=== PATIENT | male | born 1955 | race Two or more races ===

== ENCOUNTER 2024-12-26 10:44 | Emergency (ER) | payer MEDICAID, SELFPAY ==
[2024-12-26 10:45] VITALS: BMI 39.9
[2024-12-26 10:57] VITALS: BP 151/100; PULSE 94; RESP 18; TEMP 36.7; O2SAT 96
--- NOTE | 2024-12-26 11:05 | PD.EDMALE ---
ED Male Genitalurinary RME/HPI General Chief complaint: Urogenital-Male Stated complaint: PAINFUL URINATION X2DAYS Time Seen by Provider: 12/26/24 11:02 Source: patient Arrival date/time: 12/26/24 10:44 69-year-old male with a history of hyperlipidemia, hypertension presents to the emergency room with a chief complaint of dysuria x 2 days Mode of arrival: ambulatory Limitations: no limitations Related Data Home Medications ?Medication ?Instructions ?Recorded ?Confirmed isosorbide mononitrate 60 mg 60 mg PO QAM 09/23/21 09/25/21 tablet,extended release 24 hr losartan 100 mg tablet 1 tab PO DAILY 09/23/21 02/28/23 ranolazine 500 mg tablet,extended 500 mg PO BID 09/23/21 02/28/23 release,12 hr atorvastatin 40 mg tablet 40 mg PO QDAY 02/28/23 02/28/23 clopidogrel 75 mg tablet 75 mg PO QDAY 02/28/23 02/28/23 Previous Rx's ?Medication ?Instructions ?Recorded docusate sodium 100 mg capsule 100 mg PO BID #40 caps 09/24/21 (Colace) hydrocodone 5 mg-acetaminophen 325 1 tab PO Q6H PRN pain (scale score 09/24/21 mg tablet 7-10) #30 tabs ibuprofen 600 mg tablet 600 mg PO Q8H PRN pain (scale 09/24/21 score 4-6) #15 tabs phenazopyridine 200 mg tablet 200 mg PO TID 6 doses #6 tabs 12/26/24 (Pyridium) Allergies Allergy/AdvReac Type Severity Reaction Status Date / Time No Known Allergies Allergy Verified 12/26/24 10:48 Review of Systems Review of Systems Systems Reviewed: All systems reviewed, normal except as documented Constitutional Constitutional: Reports system reviewed and no additional complaints, except as documented, Denies fatigue, Denies fever(s), Denies headache(s) and Denies weakness Eyes Eyes: Reports system reviewed and no additional complaints, except as documented, Denies blurry vision and Denies change in vision ENT Ears, Nose, Mouth, and Throat: Reports system reviewed and no additional complaints, except as documented, Denies otalgia, Denies headache(s), Denies nasal congestion, Denies throat swelling and Denies vertigo Cardiovascular Cardiovascular: Reports system reviewed and no additional complaints, except as documented, Denies chest pain, Denies dyspnea and Denies dyspnea on exertion Respiratory Respiratory: Reports system reviewed and no additional complaints, except as documented, Denies chest congestion, Denies cough, Denies dyspnea, Denies dyspnea on exertion and Denies wheezing Gastrointestinal Gastrointestinal: Reports system reviewed and no additional complaints, except as documented, Denies abdominal pain, Denies cramping, Denies nausea and Denies vomiting Genitourinary Genitourinary: Reports system reviewed and no additional complaints, except as documented, Reports dysuria and Denies hematuria Musculoskeletal Musculoskeletal: Reports system reviewed and no additional complaints, except as documented and Denies back pain Integumentary/Breasts Skin/Breast: Reports system reviewed and no additional complaints, except as documented and Denies wounds Neurologic Neurologic: Reports system reviewed and no additional complaints, except as documented, Denies confusion, Denies headache(s), Denies lack of coordination, Denies vertigo and Denies weakness Psychiatric Psychiatric: Reports system reviewed and no additional complaints, except as documented, Denies anxiety, Denies confusion, Denies depression, Denies paranoia, Denies suicidal ideation and Denies tactile hallucinations Endocrine Endocrine: Reports system reviewed and no additional complaints, except as documented and Denies fatigue Hematologic/Lymphatic Hematologic/Lymphatic: Reports system reviewed and no additional complaints, except as documented and Denies lymphadenopathy Allergic/Immunologic Allergic/Immunologic: Reports system reviewed and no additional complaints, except as documented, Denies throat swelling, Denies urticaria and Denies wheezing ED Exam General Limitations: Present no limitations General appearance: Present alert and in no apparent distress Head Head exam: Present atraumatic Eye Eye exam: Present normal appearance, PERRL and EOMI ENT ENT exam: Present normal exam, normal oropharynx and mucous membranes moist Neck Neck exam: Present normal inspection, full ROM and trachea midline Chest Chest inspection: Present normal inspection and symmetric chest wall rise Respiratory Respiratory exam: Present normal lung sounds bilaterally Cardiovascular Cardiovascular exam: Present regular rate, normal rhythm and normal heart sounds Abdominal Exam Abdominal exam: Present soft and normal bowel sounds; Absent distention, tenderness, guarding or rebound Extremities Exam Extremities exam: Present normal inspection and full ROM Back Exam Back exam: Present normal inspection and full ROM Neurological Exam Neurological exam: Present alert, oriented X3 and CN II-XII intact Psychiatric Psychiatric exam: Present normal affect and normal mood Skin Skin exam: Present warm, dry, intact and normal color Course Quality Measures none Orders Category Date Time Status UA, C/S IF [Urinalysis, C/S if Indicated] Stat Lab 12/26/24 11:13 Completed Vital Signs Vital signs: Vital Signs Temperature 98.0 F 12/26/24 10:57 Pulse Rate 94 12/26/24 10:57 Respiratory Rate 18 12/26/24 10:57 Blood Pressure 151/100 H 12/26/24 10:57 Pulse Oximetry (%) 96 12/26/24 10:57 Oxygen Delivery Method Room Air 12/26/24 10:57 Urogenital - Male MDM Narrative MDM Narrative:: 69-year-old male with a history of hyperlipidemia, hypertension presents to the emergency room with a chief complaint of dysuria x 2 days Patient is hemodynamically stable and in no apparent distress. Patient denies any abdominal pain chest pain palpitations hematuria nausea or vomiting. Patient denies any discharge or any blood in the stool. Physical examination shows a soft nontender abdomen. Patient states his only complaint is burning when he urinates. Patient states he has a history of prostate problems and is on Flomax. Patient denies any acute urinary retention. Urinalysis was completed and was negative for any urinary tract infection. Patient was educated to follow-up with his urologist Patient was discharged and educated to follow-up with primary care provider in the next 24 to 48 hours and return to the emergency room for any evidence of worsening signs or symptoms Patient data External records reviewed:: [facility] previous records Clinical information provided by:: patient and parent Social determinants that could affect healthcare access:: none Patient has the following chronic illnesses:: No chronic illness How is presenting disease/condition affected by chronic disease/condition?: no chronic disease Evaluation data The following diagnostics were reviewed and interpreted by me:: lab results and radiology exam(s) Lab and/or radiology exams considered but not ordered:: Labs and radiology exams considered and ordered Interpretation Summary: N/A Medications / Prescriptions Medications or Prescriptions considered but not ordered:: No medication given Medication administrations:: No medication given Consultations Consultation(s) initiated? (list below): No Diagnosis Urogenital Male Differential Diagnosis: urinary tract infection, prostatitis, acute retention of urine and other (Dysuria) Most likely diagnosis given after review of the tests above:: Dysuria Admission Indicated Admission indicated?: not indicated Admission Request Was there a request for admission?: No Disposition Plan Disposition Plan: Discharge Discharge Attestation Discharge Attestation: The patient and all family members were given an opportunity to ask questions and understood the discharge instructions. Discharge instructions specifically effects, indications for sooner follow up or return to the emergency department, and the expected course of current diagnosis. Patient condition: Stable Discharge Plan Plan Patient Disposition: HOME (Self Care) Discharge Disposition comment: Stable Prescriptions/Referrals Prescriptions/Med Rec: New phenazopyridine [Pyridium] 200 mg tablet 200 mg PO TID Qty: 6 0RF No Action isosorbide mononitrate 60 mg Tablet Extended Release 24 Hr 60 mg PO QAM losartan 100 mg tablet 1 tab PO DAILY ranolazine 500 mg Tablet Extended Release 12 Hr 500 mg PO BID hydrocodone-acetaminophen 5-325 mg tablet 1 tab PO Q6H MDD 4 PRN (Reason: pain (scale score 7-10)) Qty: 30 0RF docusate sodium [Colace] 100 mg capsule 100 mg PO BID Qty: 40 0RF ibuprofen 600 mg tablet 600 mg PO Q8H PRN (Reason: pain (scale score 4-6)) Qty: 15 0RF atorvastatin 40 mg Tablet 40 mg PO QDAY clopidogrel 75 mg Tablet 75 mg PO QDAY Referrals: No Primary/Family,Physician [Primary Care Provider] - In 1 week Problem List Clinical Impression: Dysuria Patient/Caregiver Discharge Instructions Education Materials: Dysuria, ED Dysuria, Uncertain Cause (Adult) Additional Instructions: Por favor, consulte con sneed ur?logo en las pr?ximas 24 a 48 horas. Se le envi? un medicamento a sneed farmacia para ayudarle con candy s?ntomas. Sneed an?lisis de orina fue negativo para cualquier infecci?n del tracto urinario. Si observa cualquier signo de empeoramiento de los signos o s?ntomas, acuda a urgencias de inmediato. Print Language: Luxembourger Stand Alone Forms: [place] Award Info., Patient Portal Info Letter PA/PHARMACEUTICAL SALESPERSON Supervising Physician PA/PHARMACEUTICAL SALESPERSON Supervising Physician: Dr. Urbina
[2024-12-26 11:20] LABS: Collection Type, Urine Clean Catch
[2024-12-26 11:34] LABS: Bilirubin,Urine Negative (Negative); Blood,Urine Negative (Negative); Clarity,Urine Clear (Clear/Hazy); Color,Urine Colorless (Lt Yel-Yel); Culture Indicated,Urine Not Indicated; Glucose, Urine Negative (Negative); Ketones,Urine Negative (Negative); Leukocyte Esterase,Urine Negative (Negative); Nitrite,Urine Negative (Negative); PH,Urine 7.5 (5.0-7.0); Protein,Urine Negative (Neg - Trace); RBC,Urine < 1 /hpf (0-3); Specific Gravity,Urine 1.006 (1.001-1.035); Squamous Epithelial Cell,Urine 2 /hpf (0-5); Urobilinogen,Urine Negative mg/dL (0.0-1.0); WBC,Urine < 1 /hpf (0-5)
--- NOTE | 2024-12-26 13:50 | PC.NURSE ---
PT CALLED IN LOBBY; NO RESPONSE AT THIS TIME
== END 2024-12-26 14:41 | disposition home or self-care (01) ==
PROVIDERS: Nurse Practitioner Family; Emergency Provider Emergency Medicine
DX: R30.0 Dysuria (principal); I10 Essential (primary) hypertension; E78.5 Hyperlipidemia, unspecified
CPT/HCPCS: 81001; 99283